=== PATIENT | female | born 1960 | race Caucasian/White ===

== ENCOUNTER → 2016-12-19 | Outpatient (CLI) | payer BC ==
[~2016-12-19] MED LIST: CLCC1250 PO; CYAN100T PO; MAGN400T5 PO; MULT-506 PO
== END | disposition home or self-care (01) ==
LOC: C.PAPS 16:42
PROVIDERS: ATTEND Obstetrics & Gynecology
DX: Z01.419 Encounter for gynecological examination (general) (routine) without abnormal findings (principal)